=== PATIENT | female | born 1980 | race Caucasian/White ===

== ENCOUNTER 2018-01-20 11:58 | Emergency (ER) | payer SELFPAY ==
[~2018-01-20] VITALS: Ht 170.2 cm; Wt 81.8 kg
[2018-01-20 13:23] VITALS: Ht 170.2 cm; Wt 81.8 kg
[2018-01-20 14:12] LABS: APPEARANCE CLOUDY (CLEAR); BACTERIA MODERATE /hpf (NONE SEEN); BILIRUBIN NEGATIVE (NEGATIVE); COLOR YELLOW (YELLOW); EPITHELIAL CELLS 0-5 /hpf (0-5); GLUCOSE NEGATIVE (NEGATIVE); KETONE NEGATIVE (NEGATIVE); MUCUS <1+ /lpf (NONE SEEN); NITRITE NEGATIVE (NEGATIVE); PROTEIN NEGATIVE (NEGATIVE); RED CELLS - URINE RARE /hpf (0-5)
[2018-01-20 14:52] LABS: BASOPHILS 0.2 % (0-2); EOSINOPHILS 1.1 % (0-7); HEMATOCRIT 38.3 % (36.0-48.0); HEMOGLOBIN 13.1 g/dL (12-16); IMMATURE GRANULOCYTES 0.1 % (0-5); LYMPHOCYTES 17.4 % (15-50); MCH 31.2 pg (26.0-34.0); MCHC 34.2 g/dL (31.0-37.0); MCV 91.2 fL (80.0-100.0); MEAN PLATELET VOLUME 9.7 fL (7.4-10.4); MONOCYTES 5.4 % (2-11); NEUTROPHILS 75.8 % (40-80); PLATELET COUNT 272 10x3/uL (130-400); RDW 13.1 % (11.5-14.5); WBC 9.4 10x3/uL (4.8-10.8)
[2018-01-20 15:30] LABS: ALBUMIN 3.6 g/dL (3.4-5.0); ALKALINE PHOSPHATASE 102 U/L (46-116); ALT (SGPT) 18 U/L (10-68); BILIRUBIN - TOTAL 0.45 mg/dL (0.2-1.3); CALC OSMOLALITY 276 mosm/kg (275-300); CALCIUM 9.2 mg/dL (8.5-10.1); CARBON DIOXIDE 31.2 mmol/L (21.0-32.0); CHLORIDE - SERUM 102 mmol/L (98-107); CREATININE - SERUM 0.8 mg/dL (0.6-1.3); GLUCOSE 84 mg/dL (74-106); PROTEIN - SERUM 7.8 g/dL (6.4-8.2); SODIUM 139 mmol/L (136-145); UREA NITROGEN 12 mg/dL (7-18); eGFR NON AFRICAN AMERICAN 86 mL/min (90-120)
[2018-01-20] MEDS ORDERED: BACTRIM DS TABL1 TAB PO ×2 (15:50→15:51)
[2018-01-20 16:34] VITALS: BP 121/68
[2018-01-25 03:11] LABS: CHLAMYDIA TRACHOMATIS, NAA Negative (Negative)
== END 2018-01-20 16:22 | disposition home or self-care (01) ==
LOC: D.ER 11:58
PROVIDERS: Family Medicine
DX: L03.317 Cellulitis of buttock (principal); A59.9 Trichomoniasis, unspecified; N39.0 Urinary tract infection, site not specified